=== PATIENT | female | born 1970 | race Caucasian/White ===

== ENCOUNTER 2017-03-14 08:30 | Day surgery (SDC) | payer OTHER ==
[~2017-03-14] VITALS: Ht 167.6 cm; Wt 80.3 kg
[~2017-03-14 08:30] MED LIST: BUSPIRONE5 MG PO; CELEXA20 M1 PO; DOCUSATE CAL240 MG PO; FLONASE AL50 MCG/ACT IN; LACTULOSE PO; LORAZEPAM0.5 MG PO; OXCARBAZEPINE600 MG PO; SEROQUEL100 MG PO; SIMVASTATIN40 MG PO; SOD CHLORIDE1 G1 PO; TOPIRAMATE100 MG PO; VITAMIN D35000 UNIT PO
[2017-03-14 10:50] VITALS: BP 89/52
== END 2017-03-14 11:18 | disposition home or self-care (01) | DRG 951 ==
LOC: ENDO 08:30 → ORM 12:30 → ENDO 14:15 → ORM 15:15 → ENDO 15:30
PROVIDERS: ATTEND Internal Medicine Gastroenterology
PROC: 0DJD8ZZ Inspection of Lower Intestinal Tract, Via Natural or Artificial Opening Endoscopic (ICD-10-PCS; principal; 2017-03-14)
DX: Z12.11 Encounter for screening for malignant neoplasm of colon (principal); K64.8 Other hemorrhoids; K21.9 Gastro-esophageal reflux disease without esophagitis; K80.20 Calculus of gallbladder without cholecystitis without obstruction; Z80.0 Family history of malignant neoplasm of digestive organs; K64.4 Residual hemorrhoidal skin tags

== ENCOUNTER 2022-02-21 11:23 | Day surgery (SDC) | payer MEDICARE, MEDICAID ==
[~2022-02-21 11:23] MED LIST changes: +LEVOTHYROXIN100 MCG PO; +LINZESS145 MCG PO; +PEPCID20 MG PO; +PRIMIDONE50 MG PO
[2022-02-21 13:51] VITALS: BP 110/51
== END 2022-02-21 14:15 | disposition home or self-care (01) ==
LOC: ENDO 11:23 → ORM 13:00 → ENDO 13:00
PROVIDERS: ATTEND Internal Medicine Gastroenterology
PROC: 0DJD8ZZ Inspection of Lower Intestinal Tract, Via Natural or Artificial Opening Endoscopic (ICD-10-PCS; principal; 2022-02-21)
PROC: 0DB98ZX Excision of Duodenum, Via Natural or Artificial Opening Endoscopic, Diagnostic (ICD-10-PCS; 2022-02-21)
PROC: 0DB48ZX Excision of Esophagogastric Junction, Via Natural or Artificial Opening Endoscopic, Diagnostic (ICD-10-PCS; 2022-02-21)
PROC: 0D758ZZ Dilation of Esophagus, Via Natural or Artificial Opening Endoscopic (ICD-10-PCS; 2022-02-21)
DX: K59.04 Chronic idiopathic constipation (principal); K64.4 Residual hemorrhoidal skin tags; Q43.8 Other specified congenital malformations of intestine; K64.8 Other hemorrhoids; K21.00 Gastro-esophageal reflux disease with esophagitis, without bleeding; K29.70 Gastritis, unspecified, without bleeding; D13.2 Benign neoplasm of duodenum; Q40.2 Other specified congenital malformations of stomach; K22.89 Other specified disease of esophagus; R56.9 Unspecified convulsions; Z99.3 Dependence on wheelchair